=== PATIENT | male | born 1965 | race American Indian/Alaskan Native ===

== ENCOUNTER 2016-11-29 10:11 | Emergency (ER) | payer BC ==
[2016-11-29 11:17] VITALS: BP 135/99
[2016-11-29] MEDS ORDERED: ULTRAM PO ONE (14:47)
--- NOTE | 2016-11-29 14:47 | Emergency Department Report ---
HPI - General Chief Complaint: Pain General Time Seen by Provider: 11/29/16 14:34 - HPI HPI: 51-year-old male presents to the ED complaining of generalized joint pain times several days. 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 Patient states he is beginning to have at there are any joint pain in his hands and is unable to use her without some pain. She states hand is throbbing in nature. Patient denies loss of sensation. Patient denies fevers/chills/nausea/vomiting/abdominal pain/chest pain/ shortness of breath or any other problems. ED Past Medical Hx - Past Medical History Previous Medical History?: Yes Hx Hypertension: Yes Hx CVA: Yes Hx Diabetes: Yes (TYPE 2) Hx Arthritis: Yes Hx Asthma: Yes Additional medical history: neuropathy both legs. 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, recontruction surgery on abd, left hand surgery, nerve ablation - Social History Smoking Status: Light Tobacco Smoker Substance Use Type: Alcohol - Medications Home Medications: Home Medications Medication Instructions Recorded Confirmed Last Taken Type Allopurinol [Zyloprim] 100 mg PO QDAY 03/23/14 08/06/16 08/06/16 History Atorvastatin [Lipitor] 40 mg PO QHS 03/23/14 08/06/16 08/06/16 History Canagliflozin (Nf) [Invokana] 100 mg PO QDAY 03/23/14 08/06/16 08/06/16 History amLODIPine [Norvasc] 10 mg PO DAILY 03/23/14 08/06/16 08/06/16 History metFORMIN [Glucophage] 500 mg PO BID 03/23/14 08/06/16 08/06/16 History Cyclobenzaprine HCl 7.5 mg PO BID PRN #14 tab 08/06/16 Unknown Rx [Cyclobenzaprine 7.5 MG TAB] Diclofenac Potassium 50 mg PO BID #20 tablet 11/29/16 Unknown Rx traMADol [Ultram 50 MG tab] 50 mg PO Q6H #30 tablet 11/29/16 Unknown Rx ED Review of Systems ROS: Stated complaint: SHOULDER/WRIST/NECK/BACK PAIN Other details as noted in HPI Constitutional: denies: chills, fever Eyes: denies: eye pain, eye discharge, vision change ENT: denies: ear pain, throat pain Respiratory: denies: cough, shortness of breath, wheezing Cardiovascular: denies: chest pain, palpitations Endocrine: no symptoms reported Gastrointestinal: denies: abdominal pain, nausea, diarrhea Genitourinary: denies: urgency, dysuria, frequency, hematuria, discharge Musculoskeletal: arthralgia. denies: back pain, joint swelling, myalgia Skin: denies: rash, lesions Neurological: denies: headache, weakness, numbness, paresthesias, confusion, abnormal gait, vertigo Psychiatric: denies: anxiety, depression, auditory hallucinations, visual hallucinations, homicidal thoughts, suicidal thoughts Hematological/Lymphatic: denies: easy bleeding, easy bruising Physical Exam - Physical Exam Vital Signs: Vital Signs 11/29/16 11:12 Temperature 98.3 F Pulse Rate 77 Respiratory 16 Rate Blood Pressure 135/99 O2 Sat by Pulse 100 Oximetry Physical Exam: GENERAL: Alert and oriented x3, no apparent distress, Normal Gait, atraumatic. HEAD: Head is normocephalic and a-traumatic. EYES: Extra ocular muscles are intact. Pupils are equal, round, and reactive to light and accommodation. EARS: symetrical, gross auditory nml bilaterally. NOSE: Nose symetrical, Nontender,Nares appeared normal. MOUTH:Mouth is well hydrated and without lesions. Patent airways. NECK: Supple. Non edematous, No carotid bruits. No lymphadenopathy or thyromegaly. LUNGS: Symetrical with respiration, No wheezing, no rales or crackles, CTAB. HEART: S1, S2 present, regular rate and rhythm without murmur, no rubs, no gallops. ABDOMEN: No organomegaly was noted,Positive bowel sounds, soft, and non- distended. . Nontender to palpation on all Quadrants, NO CVA tenderness. EXTREMITIES/MUSCULOSKELETAL: No cyanosis, clubbing, rash, lesions or edema. Full ROM bilaterally. UE/LE Pulses 2+ bilaterally. No loss of sensation in her hands patient but to extend hands and flex and with little difficulty NEUROLOGIC: No focal Deficit, Cranial nerves II through XII are grossly intact. No loss of sensation, PSYCHIATRIC: Mood is congruent with affect, denies suicidal or homicidal ideations. SKIN: Warm and dry, No lesions, No ulceration or induration present. ED Course Vital Signs 11/29/16 11:12 Temperature 98.3 F Pulse Rate 77 Respiratory 16 Rate Blood Pressure 135/99 O2 Sat by Pulse 100 Oximetry ED Medical Decision Making - Medical Decision Making 51-year-old male presents with a pleuritic chart pain. ED course: Patient received 100 mg of tramadol in ED. Discussed the patient will follow up with primary care physician. ED course: Discussed home medication or anti-inflammatory and pain medication. Patient states he will follow up with his primary care physician. Patient's vital signs stable. Patient is in no acute or distress. Critical care attestation.: If time is entered above; I have spent that time in minutes in the direct care of this critically ill patient, excluding procedure time. ED Disposition Clinical Impression: Arthritis pain of hand Arthralgia Qualifiers: Joint pain location: hand Laterality: bilateral Qualified Code(s): M25.541 - Pain in joints of right hand Disposition: DISCHARGED TO HOME OR SELFCARE Is pt being admited?: No Does the pt Need Aspirin: No Condition: Stable Instructions: Osteoarthritis (ED), Arthralgia (ED) Prescriptions: Diclofenac Potassium 50 mg PO BID #20 tablet traMADol [Ultram 50 MG tab] 50 mg PO Q6H #30 tablet Referrals: PRIMARY CARE, [Primary Care Provider] - 3-5 Days VIRIDIANA HUMPHREYS MD [Referring] - 3-5 Days RIZWAN GAMBOA MD [Referring] - 3-5 Days [facility] [Outside] - 3-5 Days [facility] [Outside] - 3-5 Days [facility] [Outside] - 3-5 Days Forms: Work/School Release Form(ED) Time of Disposition: 15:20
== END 2016-11-29 15:39 | disposition home or self-care (01) ==
LOC: ED 10:11
DX: M19.90 Unspecified osteoarthritis, unspecified site (principal); M25.511 Pain in right shoulder; I10 Essential (primary) hypertension; E11.9 Type 2 diabetes mellitus without complications; J45.909 Unspecified asthma, uncomplicated; F17.200 Nicotine dependence, unspecified, uncomplicated
CPT/HCPCS: 99282

== ENCOUNTER 2017-04-18 09:34 | Emergency (ER) | payer BC ==
[2017-04-18 10:58] LABS: Eosinophils % (Auto) 2.1 % (0.0-4.3); Hematocrit 48.8 % (35.5-45.6); Hemoglobin 15.4 gm/dl (11.8-15.2); Mean Corpuscular HGB Conc 32 % (32-34); Mean Corpuscular Volume 76 fl (84-94); Platelet Count 201 K/mm3 (140-440); Red Blood Count 6.41 M/mm3 (3.65-5.03); Red Cell Distribution Width 14.7 % (13.2-15.2); White Blood Count 11.2 K/mm3 (4.5-11.0)
[2017-04-18 10:59] LABS: Mean Corpuscular Hemoglobin 24 pg (28-32)
--- NOTE | 2017-04-18 11:01 | Emergency Department Report ---
Entered by AILYN PAULINO, acting as scribe for ZABRINA OLIVO PA. Chief Complaint: Abdominal Pain Stated Complaint: ABdominal pain Time Seen by Provider: 04/18/17 10:08 - HPI History of Present Illness: 52 y/o male, with Hx of HTN, DM, chronic bronchitis, chronic back pain, carpal tunnel and arthritis, he is nontoxic, well nourished in appearance, no acute signs of distress and presents with constant, 10/10, sharp pelvic pain that started 2 days ago. Sx include chronic back pain and mild dysuria, but pt denies n/v, fever, chills or urinary frequency. Pt notes having extensive abd surgery 21 years ago. - ROS Review of Systems: All systems are negative unless stated in HPI above Sx include pelvic pain, chronic back pain and mild dysuria, but pt denies n/v, fever, chills or urinary frequency. - Exam Vital Signs: Vital Signs 04/18/17 09:39 Temperature 97.8 F Pulse Rate 84 Respiratory 16 Rate Blood Pressure 143/99 O2 Sat by Pulse 100 Oximetry Physical Exam: Head: Normocephalic, atraumatic Cardiovascular: S1-S2, regular rate, regular rhythm. No murmurs. Abdomen: pelvic TTP, positive guarding with no rebound. Bowel sounds normal. No CVA tenderness MSE screening note: Focused history and physical exam performed. Due to findings the following was ordered: see [facility] ED Medical Decision Making - Medical Decision Making Appropriate screening provided to pt by provider in MSE, appropriate protocol implemented. To be seen by provider in main ED. ED Disposition for [facility] Condition: Stable This documentation as recorded by the scribe,AILYN PAULINO,accurately reflects the service I personally performed and the decisions made by ga,ZABRINA OLIVO PA.
[2017-04-18 11:08] LABS: Bilirubin,Urine NEG (Negative); Blood,Urine NEG (Negative); Ketones,Urine TR mg/dL (Negative); Leukocyte Esterase,Urine NEG (Negative); Nitrite,Urine NEG (Negative); Protein,Urine <15 mg/dL mg/dL (Negative); Urobilinogen,Urine < 2.0 mg/dL (<2.0); WBC,Urine < 1.0 /HPF (0.0-6.0)
[2017-04-18 11:21] LABS: Alanine Aminotransferase 28 units/L (7-56); Albumin 4.5 g/dL (3.9-5); Albumin/Globulin Ratio 1.2 %; Alkaline Phosphatase 96 units/L (35-129); Anion Gap 19 mmol/L; Blood Urea Nitrogen 11 mg/dL (9-20); Calcium 9.1 mg/dL (8.4-10.2); Carbon Dioxide 24 mmol/L (22-30); Chloride 100.5 mmol/L (98-107); Glucose 123 mg/dL (75-100); Lipase 46 units/L (13-60); Potassium 4.2 mmol/L (3.6-5.0); Sodium 139 mmol/L (137-145); Total Protein 8.4 g/dL (6.3-8.2)
[2017-04-18] MEDS ORDERED: MORPHINE IV ONE (20:38)
[2017-04-18] MEDS ORDERED: ZOFRAN IV ONE (20:38)
--- NOTE | 2017-04-18 20:42 | Emergency Department Report ---
ED Abdominal Pain HPI - General Chief Complaint: Abdominal Pain Stated Complaint: GROIN PAIN/BACK PAIN Time Seen by Provider: 04/18/17 10:12 Source: patient Mode of arrival: Ambulatory Limitations: No Limitations - History of Present Illness Initial Comments: Patient is a 52 years old -German male coming with abdominal pain since Tuesday. He describes his pain as a chronic and suprapubic and radiated to his back. He might anything for nausea or vomiting. Complaining of burning sensation in the urine MD Complaint: abdominal pain -: Gradual, days(s) Location: suprapubic Radiation: back Migration to: no migration Severity scale (0 -10): 6 Quality: cramping Associated Symptoms: constipation. denies: nausea, vomiting, diarrhea - Related Data Home Medications Medication Instructions Recorded Confirmed Last Taken Allopurinol [Zyloprim] 100 mg PO QDAY 03/23/14 04/18/17 04/18/17 08:00 Atorvastatin [Lipitor] 40 mg PO QHS 03/23/14 04/18/17 04/17/17 21:00 Canagliflozin (Nf) [Invokana] 100 mg PO QDAY 03/23/14 04/18/17 04/17/17 08:00 amLODIPine [Norvasc] 10 mg PO DAILY 03/23/14 04/18/17 04/18/17 08:00 metFORMIN [Glucophage] 500 mg PO BID 03/23/14 04/18/17 04/18/17 08:00 Previous Rx's Medication Instructions Recorded Last Taken Type Cyclobenzaprine HCl 7.5 mg PO BID PRN #14 tab 08/06/16 04/17/17 21:00 Rx [Cyclobenzaprine 7.5 MG TAB] Diclofenac Potassium 50 mg PO BID #20 tablet 11/29/16 04/18/17 08:00 Rx traMADol [Ultram 50 MG tab] 50 mg PO Q6H #30 tablet 11/29/16 04/17/17 21:00 Rx Ondansetron [Zofran Odt] 4 mg PO Q4-6H PRN #14 tab.rapdis 04/19/17 Unknown Rx traMADol [Ultram] 50 mg PO Q6HR PRN #14 tablet 04/19/17 Unknown Rx Allergies Allergy/AdvReac Type Severity Reaction Status Date / Time [place] Allergy Hives Verified 04/18/17 20:31 tree nut Allergy Hives Verified 04/18/17 20:31 PECANS Allergy Hives Uncoded 04/18/17 20:31 WALNUTS Allergy Hives Uncoded 04/18/17 20:31 ED Review of Systems ROS: Stated complaint: GROIN PAIN/BACK PAIN Other details as noted in HPI Comment: All other systems reviewed and negative Constitutional: denies: chills, fever Respiratory: denies: cough, shortness of breath, SOB with exertion Cardiovascular: denies: chest pain, palpitations Gastrointestinal: abdominal pain, constipation. denies: nausea, vomiting, diarrhea, hematemesis, melena, hematochezia Genitourinary: urgency, dysuria, frequency. denies: hematuria, discharge, testicular pain, testicular mass Neurological: denies: headache ED Past Medical Hx - Past Medical History Previous Medical History?: Yes Hx Hypertension: Yes Hx CVA: Yes Hx Diabetes: Yes (TYPE 2) Hx Arthritis: Yes Hx Asthma: Yes Additional medical history: neuropathy both legs. 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, recontruction surgery on abd, left hand surgery, nerve ablation - Social History Smoking Status: Current Every Day Smoker Substance Use Type: Alcohol - Medications Home Medications: Home Medications Medication Instructions Recorded Confirmed Last Taken Type Allopurinol [Zyloprim] 100 mg PO QDAY 03/23/14 04/18/17 04/18/17 08:00 History Atorvastatin [Lipitor] 40 mg PO QHS 03/23/14 04/18/17 04/17/17 21:00 History Canagliflozin (Nf) [Invokana] 100 mg PO QDAY 03/23/14 04/18/17 04/17/17 08:00 History amLODIPine [Norvasc] 10 mg PO DAILY 03/23/14 04/18/17 04/18/17 08:00 History metFORMIN [Glucophage] 500 mg PO BID 03/23/14 04/18/17 04/18/17 08:00 History Cyclobenzaprine HCl 7.5 mg PO BID PRN #14 tab 08/06/16 04/18/17 04/17/17 21:00 Rx [Cyclobenzaprine 7.5 MG TAB] Diclofenac Potassium 50 mg PO BID #20 tablet 11/29/16 04/18/17 04/18/17 08:00 Rx traMADol [Ultram 50 MG tab] 50 mg PO Q6H #30 tablet 11/29/16 04/18/17 04/17/17 21:00 Rx Ondansetron [Zofran Odt] 4 mg PO Q4-6H PRN #14 tab.rapdis 04/19/17 Unknown Rx traMADol [Ultram] 50 mg PO Q6HR PRN #14 tablet 04/19/17 Unknown Rx ED Physical Exam - General Limitations: No Limitations General appearance: alert, in no apparent distress - Head Head exam: Present: atraumatic - Eye Eye exam: Present: normal appearance - Neck Neck exam: Present: normal inspection, full ROM. Absent: tenderness, meningismus - Respiratory Respiratory exam: Present: normal lung sounds bilaterally. Absent: respiratory distress, rhonchi, stridor - Cardiovascular Cardiovascular Exam: Present: regular rate, normal rhythm, normal heart sounds - GI/Abdominal GI/Abdominal exam: Present: soft, tenderness. Absent: distended, guarding, rebound, rigid, mass, pulsatile mass, hernia - Neurological Exam Neurological exam: Present: alert, oriented X3, CN II-XII intact - Skin Skin exam: Present: warm, intact, normal color ED Course Vital Signs 04/18/17 04/18/17 04/18/17 09:39 20:21 22:00 Temperature 97.8 F Pulse Rate 84 64 65 Respiratory 16 20 20 Rate Blood Pressure 143/99 Blood Pressure 129/93 117/77 [Left] O2 Sat by Pulse 100 98 99 Oximetry 04/19/17 01:27 Temperature Pulse Rate 60 Respiratory 16 Rate Blood Pressure Blood Pressure 117/80 [Left] O2 Sat by Pulse 99 Oximetry ED Medical Decision Making - Lab Data Result diagrams: 04/18/17 10:47 04/18/17 10:47 Critical care attestation.: If time is entered above; I have spent that time in minutes in the direct care of this critically ill patient, excluding procedure time. ED Disposition Clinical Impression: Abdominal pain, Cholelithiasis Disposition: - TO HOME OR SELFCARE Is pt being admited?: No Does the pt Need Aspirin: No Condition: Undetermined Instructions: Biliary Colic (ED) Referrals: PRIMARY CARE, [Primary Care Provider] - 3-5 Days
[2017-04-18] MEDS ORDERED: NACL ONE (22:44)
[2017-04-19 01:28] VITALS: BP 117/80
--- NOTE | 2017-04-19 01:34 | Cat Scan Report ---
FINAL REPORT EXAM: CT ABDOMEN PELVIS W CON HISTORY: ABDOMINAL PAIN bladder pain TECHNIQUE: Dynamic helical CT scan through the abdomen and pelvis after ingestion of oral contrast and during and again after intravenous injection of iodinated contrast. Images are reconstructed in the sagittal and coronal planes. 300 cc of Omnipaque were used for the IV contrast agent PRIORS: None. FINDINGS: The lung bases are clear. There is diffuse low-attenuation of the liver consistent with fatty infiltration. Otherwise, the liver appears normal. The pancreas, spleen and adrenal glands appear normal. There is a stone in an otherwise normal-appearing gallbladder. The right kidney appears normal. There are 2 hyperdense lesions in the lower pole of the left kidney. The larger measures 1.3 cm and the smaller measures 8 mm. The smaller lesion enhances with contrast. Both have negative Hounsfield measurements consistent with fat. The pelvic organs appear grossly normal. The stomach appears grossly within normal limits. There are no abnormally dilated loops of bowel or acute inflammatory changes. A normal-appearing appendix is identified. The abdominal aorta has a normal diameter. There is degenerative facet disease of the lower lumbar spine. IMPRESSION: 1. Two left renal lesions with internal fat most consistent with angiomyolipomas. Further evaluation with ultrasound is recommended. 2. Cholelithiasis without CT evidence of acute cholecystitis 3. Diffuse fatty infiltration of the liver
== END 2017-04-19 02:15 | disposition home or self-care (01) ==
LOC: ED 09:34
DX: K80.20 Calculus of gallbladder without cholecystitis without obstruction (principal); I10 Essential (primary) hypertension; M19.90 Unspecified osteoarthritis, unspecified site; J45.909 Unspecified asthma, uncomplicated; E11.40 Type 2 diabetes mellitus with diabetic neuropathy, unspecified; F17.210 Nicotine dependence, cigarettes, uncomplicated; Z86.73 Personal history of transient ischemic attack (TIA), and cerebral infarction without residual deficits; Z91.018 Allergy to other foods
CPT/HCPCS: 36415; 74177; 80053; 81001; 83690; 85025; 96374; 96375; 99284; J2270; J2405; Q9967

== ENCOUNTER 2017-09-10 09:44 | Emergency (ER) | payer BC ==
[2017-09-10 09:52] VITALS: BP 157/98
[2017-09-10 10:31] LABS: Basophils % (Auto) 1.3 % (0.0-1.8); Eosinophils % (Auto) 2.5 % (0.0-4.3); Hematocrit 46.1 % (35.5-45.6); Hemoglobin 14.9 gm/dl (11.8-15.2); Mean Corpuscular HGB Conc 32 % (32-34); Mean Corpuscular Volume 77 fl (84-94); Platelet Count 185 K/mm3 (140-440); Red Cell Distribution Width 14.4 % (13.2-15.2); White Blood Count 8.7 K/mm3 (4.5-11.0)
[2017-09-10 10:46] LABS: Mean Corpuscular Hemoglobin 25 pg (28-32)
[2017-09-10 10:57] LABS: Alanine Aminotransferase 46 units/L (7-56); Albumin 4.3 g/dL (3.9-5); Albumin/Globulin Ratio 1.2 %; Alkaline Phosphatase 115 units/L (35-129); Anion Gap 19 mmol/L; BUN/Creatinine Ratio 15; Blood Urea Nitrogen 15 mg/dL (9-20); Calcium 9.1 mg/dL (8.4-10.2); Carbon Dioxide 24 mmol/L (22-30); Chloride 100.3 mmol/L (98-107); Glucose 236 mg/dL (75-100); Potassium 4.1 mmol/L (3.6-5.0); Sodium 139 mmol/L (137-145); Uric Acid 4.3 mg/dL (3.5-7.6)
--- NOTE | 2017-09-10 11:38 | Emergency Department Report ---
ED Lower Extremity HPI - General Chief Complaint: Extremity Injury, Lower Stated Complaint: LEFT FOOT INJURY Time Seen by Provider: 09/10/17 10:09 Source: patient Mode of arrival: Ambulatory Limitations: Physical Limitation - History of Present Illness MD Complaint: foot injury -: Gradual Injury: Foot: Left Type of Injury: unknown, other (states may have hurt it just walking on it) Place: home Severity: moderate Improves With: nothing, other (states his ultram dont work; nor his flexeril) Worsens With: nothing Associated Symptoms: denies: snap/pop sensation, swelling, numbness, tingling, unable to bear weight, able to partially bear weight, ambulatory - Related Data Home Medications Medication Instructions Recorded Confirmed Last Taken Allopurinol [Zyloprim] 100 mg PO QDAY 03/23/14 04/18/17 04/18/17 08:00 Atorvastatin [Lipitor] 40 mg PO QHS 03/23/14 04/18/17 04/17/17 21:00 amLODIPine [Norvasc] 10 mg PO DAILY 03/23/14 04/18/17 04/18/17 08:00 metFORMIN [Glucophage] 500 mg PO BID 03/23/14 04/18/17 04/18/17 08:00 Previous Rx's Medication Instructions Recorded Last Taken Type Naproxen [Naprosyn] 500 mg PO BID PRN #20 tablet 09/10/17 Unknown Rx traMADol [Ultram] 50 mg PO Q6HR PRN #12 tablet 09/10/17 Unknown Rx Allergies Allergy/AdvReac Type Severity Reaction Status Date / Time [place] Allergy Hives Verified 04/18/17 20:31 tree nut Allergy Hives Verified 04/18/17 20:31 PECANS Allergy Hives Uncoded 04/18/17 20:31 WALNUTS Allergy Hives Uncoded 04/18/17 20:31 ED Review of Systems ROS: Stated complaint: LEFT FOOT INJURY Other details as noted in HPI Comment: All other systems reviewed and negative Musculoskeletal: other (left foot pain- at heel) ED Past Medical Hx - Past Medical History Previous Medical History?: Yes Hx Hypertension: Yes Hx CVA: Yes Hx Diabetes: Yes (TYPE 2) Hx Arthritis: Yes Hx Asthma: Yes Additional medical history: neuropathy both legs. 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, recontruction surgery on abd, left hand surgery, nerve ablation - Social History Smoking Status: Current Every Day Smoker Substance Use Type: Alcohol, Marijuana, Prescribed - Medications Home Medications: Home Medications Medication Instructions Recorded Confirmed Last Taken Type Allopurinol [Zyloprim] 100 mg PO QDAY 03/23/14 04/18/17 04/18/17 08:00 History Atorvastatin [Lipitor] 40 mg PO QHS 03/23/14 04/18/17 04/17/17 21:00 History amLODIPine [Norvasc] 10 mg PO DAILY 03/23/14 04/18/17 04/18/17 08:00 History metFORMIN [Glucophage] 500 mg PO BID 03/23/14 04/18/17 04/18/17 08:00 History Naproxen [Naprosyn] 500 mg PO BID PRN #20 tablet 09/10/17 Unknown Rx traMADol [Ultram] 50 mg PO Q6HR PRN #12 tablet 09/10/17 Unknown Rx ED Physical Exam - General Limitations: Physical Limitation General appearance: alert, in no apparent distress - Head Head exam: Present: atraumatic - Eye Eye exam: Present: PERRL, EOMI - ENT ENT exam: Present: mucous membranes moist - Neck Neck exam: Present: normal inspection - Respiratory Respiratory exam: Present: normal lung sounds bilaterally - Cardiovascular Cardiovascular Exam: Present: regular rate, normal rhythm (90 on exam) - GI/Abdominal GI/Abdominal exam: Present: soft - Rectal Rectal exam: Present: deferred - Extremities Exam Extremities exam: Present: normal inspection, full ROM, tenderness - Expanded Lower Extremity Exam Left Lower Leg exam: Present: normal inspection Ankle exam: Present: normal inspection Foot/Toe exam: Present: normal inspection (states it just hurts; indicating near heel and bottom of foot; no trauma known). Absent: tenderness, swelling, ecchymosis, deformity, erythema, subungual hematoma ED Course Vital Signs 09/10/17 09:49 Temperature 98 F Pulse Rate 107 H Respiratory 22 Rate Blood Pressure 157/98 O2 Sat by Pulse 99 Oximetry - Reevaluation(s) Reevaluation #1: 09/10/17 12:06 to er w foot pain states no trauma n/v intact ambulatory states his ultram and flexeril is not working and all the pain is making his bp inc. labs noted no inc uric acid pt reports compliance w meds will not use prednisone given his inc bs xray noted discussed w pt medicated. ED Lower Extremity MDM - Lab Data Result diagrams: 09/10/17 10:15 09/10/17 10:15 - Radiology Data Radiology results: report reviewed, image reviewed - Medical Decision Making see note - Differential Diagnosis gout v fx Critical care attestation.: If time is entered above; I have spent that time in minutes in the direct care of this critically ill patient, excluding procedure time. ED Disposition Clinical Impression: Heel spur, Arthritis, Diabetes, Hyperglycemia, Hypertension Disposition: TO HOME OR SELFCARE Is pt being admited?: No Does the pt Need Aspirin: No Condition: Stable Instructions: Arthralgia (ED), Diabetes Mellitus Type 2 in Adults (ED), Hypertension (ED) Additional Instructions: warm compresses support shoe follow up pcp follow you diabetic diet monitor your blood pressure Prescriptions: Naproxen [Naprosyn] 500 mg PO BID PRN #20 tablet PRN Reason: Pain traMADol [Ultram] 50 mg PO Q6HR PRN #12 tablet PRN Reason: Pain Referrals: PRIMARY CARE, [Primary Care Provider] - 3-5 Days ROBERTO MONTILLA MD [Staff Physician] - 3-5 Days KIANA CAMARENA MD [Staff Physician] - 3-5 Days Time of Disposition: 11:54
--- NOTE | 2017-09-10 11:52 | XRay Report ---
Left foot 3 views: History: Left foot pain. Findings: Large plantar spur posterior calcaneum. Arthritic changes in the talotibial joint. Arthritic changes of the first tarsometatarsal joint. Mild arthritic changes of the interphalangeal joint second third fourth and fifth toes. No periosteal reaction, lytic lesion or soft tissue calcification. Impression: Findings as detailed above.
[2017-09-10] MEDS ORDERED: TORADOL IM ONE (11:56)
== END 2017-09-10 13:30 | disposition home or self-care (01) ==
LOC: ED 09:44
DX: S99.922A Unspecified injury of left foot, initial encounter (principal); M77.32 Calcaneal spur, left foot; E11.65 Type 2 diabetes mellitus with hyperglycemia; I10 Essential (primary) hypertension; M19.072 Primary osteoarthritis, left ankle and foot; I63.9 Cerebral infarction, unspecified; J45.909 Unspecified asthma, uncomplicated; F12.10 Cannabis abuse, uncomplicated; F17.200 Nicotine dependence, unspecified, uncomplicated; Z98.890 Other specified postprocedural states; Z91.018 Allergy to other foods; Z91.010 Allergy to peanuts; X58.XXXA Exposure to other specified factors, initial encounter; Y93.89 Activity, other specified; Y99.8 Other external cause status; Y92.098 Other place in other non-institutional residence as the place of occurrence of the external cause
CPT/HCPCS: 36415; 73630; 80053; 84550; 85025; 96372; 99284; J1885

== ENCOUNTER 2017-12-12 17:20 | Emergency (ER) | payer BC ==
[2017-12-12] MEDS ORDERED: CATAPRES PO ONE ×2 (17:48→17:59)
--- NOTE | 2017-12-12 18:02 | Emergency Department Report ---
Chief Complaint: High BP Stated Complaint: NECK PAIN, HTN - HPI History of Present Illness: The patient is a 52-year-old male who presents for evaluation of neck pain and headache. The patient has a history of poorly controlled hypertension, diabetes , who reports recurrence of chronic posterior lower neck pain for the past couple of days, achy in quality, moderate to severe, exacerbated with movement of the neck. He admits to a constant mild to moderate headache since this morning. The patient denies fever, head injury, neck stiffness, chest pain, dyspnea, hemoptysis, vision or hearing changes, smell or taste changes, paresthesias, facial drooping, slurred speech, seizure-like activity, urine or bowel incontinence or retention, or other focal neurological deficit. - Exam Vital Signs: Vital Signs 12/12/17 17:36 Temperature 99.1 F Pulse Rate 83 Respiratory 16 Rate Blood Pressure 181/124 O2 Sat by Pulse 98 Oximetry MSE screening note: Focused history and physical exam performed. Due to findings the following was ordered: ED Disposition for MSE Condition: Stable
--- NOTE | 2017-12-12 18:41 | Cat Scan Report ---
FINAL REPORT EXAM: CT HEAD WO CONTRAST HISTORY: headache, HTN TECHNIQUE: Standard unenhanced CT of the head at 5.0 millimeter axial increments. PRIORS: None. FINDINGS: The ventricular system is normal in size and configuration. There is no evidence for parenchymal volume loss. There is no evidence for mass lesion, mass effect, midline shift, acute intracranial hemorrhage, or acute ischemia/ infarction. No evidence for acute skull fracture is seen. No abnormality in the overlying scalp soft tissues is seen. Visualized paranasal sinuses are clear. IMPRESSION: Negative CT of the head. No acute intracranial process noted.
[2017-12-12] MEDS ORDERED: TYLENOL PO ONE (19:47)
[2017-12-12] MEDS ORDERED: TORADOL IM ONE (19:47)
--- NOTE | 2017-12-12 19:48 | Emergency Department Report ---
ED General Adult HPI - General Chief complaint: High BP Stated complaint: NECK PAIN, HTN Time Seen by Provider: 12/12/17 19:29 Source: patient, RN notes reviewed Mode of arrival: Ambulatory Limitations: No Limitations - History of Present Illness Initial comments: This is a 52-year-old male. The patient is previously unknown to this provider. He has a past medical history of hypertension, chronic back pain, chronic lower back pain. The patient presents to the ER with complaint of right-sided trapezius pain which radiates up into the occipital scalp. It has been present for 3-4 days. It is not sudden or thunderclap in nature. It did not reach maximal intensity within an hour. There is no neck stiffness is no fever, there is no weakness, numbness or unsteady gait. 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 The trapezius pain increases with palpation, range of motion, does not radiate anywhere except as noted, and decreases with rest. Patient reports taking Tylenol the other day, and then "going to sleep because I felt better." There is no trauma, there is no recent chiropractic manipulation. -: Gradual Location: head Radiation: neck Quality: aching Consistency: intermittent Improves with: other Worsens with: other Associated Symptoms: headaches. denies: confusion, chest pain, cough, diaphoresis, fever/chills, loss of appetite, malaise, nausea/vomiting, rash, seizure, shortness of breath, syncope, weakness - Related Data Home Medications Medication Instructions Recorded Confirmed Last Taken Allopurinol [Zyloprim] 100 mg PO QDAY 03/23/14 04/18/17 04/18/17 08:00 Atorvastatin [Lipitor] 40 mg PO QHS 03/23/14 04/18/17 04/17/17 21:00 amLODIPine [Norvasc] 10 mg PO DAILY 03/23/14 04/18/1704/18/17 08:00 metFORMIN [Glucophage] 500 mg PO BID 03/23/14 04/18/17 04/18/17 08:00 Previous Rx's Medication Instructions Recorded Last Taken Type Naproxen [Naprosyn] 500 mg PO BID PRN #20 tablet 09/10/17 Unknown Rx traMADol [Ultram] 50 mg PO Q6HR PRN #12 tablet 09/10/17 Unknown Rx Acetaminophen [Tylenol Arthritis] 650 mg PO Q6HR PRN #30 tablet.er 12/12/17 Unknown Rx Ibuprofen [Motrin] 600 mg PO Q8H PRN #30 tablet 12/12/17 Unknown Rx Lidocaine [Lidoderm] 1 each TP BID PRN #10 adh..patch 12/12/17 Unknown Rx Allergies Allergy/AdvReac Type Severity Reaction Status Date / Time [place] Allergy Hives Verified 04/18/17 20:31 tree nut Allergy Hives Verified 04/18/17 20:31 PECANS Allergy Hives Uncoded 04/18/17 20:31 WALNUTS Allergy Hives Uncoded 04/18/17 20:31 ED Review of Systems ROS: Stated complaint: NECK PAIN, HTN Other details as noted in HPI Comment: All other systems reviewed and negative ED Past Medical Hx - Past Medical History Previous Medical History?: Yes Hx Hypertension: Yes Hx CVA: Yes Hx Diabetes: Yes (TYPE 2) Hx Arthritis: Yes Hx Asthma: Yes Additional medical history: neuropathy both legs. 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, recontruction surgery on abd, left hand surgery, nerve ablation - Social History Smoking Status: Current Some Day Smoker Substance Use Type: Alcohol - Medications Home Medications: Home Medications Medication Instructions Recorded Confirmed Last Taken Type Allopurinol [Zyloprim] 100 mg PO QDAY 03/23/14 04/18/17 04/18/17 08:00 History Atorvastatin [Lipitor] 40 mg PO QHS 03/23/14 04/18/17 04/17/17 21:00 History amLODIPine [Norvasc] 10 mg PO DAILY 03/23/14 04/18/17 04/18/17 08:00 History metFORMIN [Glucophage] 500 mg PO BID 03/23/14 04/18/17 04/18/17 08:00 History Naproxen [Naprosyn] 500 mg PO BID PRN #20 tablet 09/10/17 Unknown Rx traMADol [Ultram] 50 mg PO Q6HR PRN #12 tablet 09/10/17 Unknown Rx Acetaminophen [Tylenol Arthritis] 650 mg PO Q6HR PRN #30 tablet.er 12/12/17 Unknown Rx Ibuprofen [Motrin] 600 mg PO Q8H PRN #30 tablet 12/12/17 Unknown Rx Lidocaine [Lidoderm] 1 each TP BID PRN #10 adh..patch 12/12/17 Unknown Rx ED Physical Exam - General Limitations: No Limitations General appearance: alert, in no apparent distress - Head Head exam: Present: atraumatic, normocephalic - Eye Eye exam: Present: normal appearance, PERRL, EOMI, other (visual acuity intact to finger counting, color perception, reading at a close distance). Absent: nystagmus - ENT ENT exam: Present: normal exam, normal orophraynx, mucous membranes moist, normal external ear exam - Neck Neck exam: Present: normal inspection, tenderness (there is reproducible paracervical and trapezius right-sided tenderness.), full ROM, other (throat exam within normal limits, no redness, pus, streaking.). Absent: meningismus, lymphadenopathy, thyromegaly - Respiratory Respiratory exam: Present: normal lung sounds bilaterally. Absent: respiratory distress - Cardiovascular Cardiovascular Exam: Present: regular rate, normal rhythm, normal heart sounds. Absent: systolic murmur, diastolic murmur, rubs, gallop - GI/Abdominal GI/Abdominal exam: Present: soft, normal bowel sounds. Absent: distended, tenderness, guarding, rebound, rigid, pulsatile mass - Rectal Rectal exam: Present: deferred - Extremities Exam Extremities exam: Present: normal inspection, full ROM, normal capillary refill. Absent: pedal edema, joint swelling, calf tenderness - Back Exam Back exam: Present: normal inspection, full ROM, muscle spasm. Absent: tenderness, CVA tenderness (R), paraspinal tenderness, vertebral tenderness - Neurological Exam Neurological exam: Present: alert, oriented X3, CN II-XII intact, normal gait, other (Extraocular movements intact. Tongue midline. No facial droop. Facial sensation intact to light touch in the V1, V2, V3 distribution bilaterally. 5 and 5 strength in 4 extremities.. Sensation is intact to light touch in 4 extremities.). Absent: motor sensory deficit - Psychiatric Psychiatric exam: Present: normal affect, normal mood - Skin Skin exam: Present: warm, dry, intact, normal color. Absent: rash ED Course Vital Signs 12/12/17 12/12/17 12/12/17 17:36 18:01 19:42 Temperature 99.1 F 98.1 F Pulse Rate 83 83 100 H Respiratory 16 16 Rate Blood Pressure 181/124 181/124 Blood Pressure 140/90 [Left] O2 Sat by Pulse 98 97 Oximetry 12/12/17 20:07 Temperature Pulse Rate Respiratory 16 Rate Blood Pressure Blood Pressure [Left] O2 Sat by Pulse Oximetry ED Medical Decision Making - Lab Data Vital Signs 12/12/17 12/12/17 12/12/17 17:36 18:01 19:42 Temperature 99.1 F 98.1 F Pulse Rate 83 83 100 H Respiratory 16 16 Rate Blood Pressure 181/124 181/124 Blood Pressure 140/90 [Left] O2 Sat by Pulse 98 97 Oximetry 12/12/17 20:07 Temperature Pulse Rate Respiratory 16 Rate Blood Pressure Blood Pressure [Left] O2 Sat by Pulse Oximetry - Radiology Data Radiology results: report reviewed, image reviewed Noncontrast CT scan of the brain is negative. X-ray of the cervical spine shows DJD. - Medical Decision Making Differential diagnosis, including but not limited to: Muscular neck pain, incidental hypertension Assessment and plan: 52-year-old male with reproducible paracervical and trapezius tenderness, which is worsened after heavy lifting over the weekend, history and physical is not consistent with ischemic or hemorrhagic stroke, epidural compression syndrome, or infectious process. Throat exam is within normal limits, as no carotid bruit, there is no recent chiropractic manipulation. Blood pressure is improved with clonidine, patient noted to be smiling and laughing with his , he will be discharged with pain medication, lidocaine patches, lifting as tolerated, instructed to follow up with outpatient primary care doctor. Return precautions are reviewed. Critical care attestation.: If time is entered above; I have spent that time in minutes in the direct care of this critically ill patient, excluding procedure time. ED Disposition Clinical Impression: Trapezius strain, Elevated blood pressure reading Disposition: TO HOME OR SELFCARE Is pt being admited?: No Does the pt Need Aspirin: No Condition: Stable Instructions: Muscle Strain (ED) Additional Instructions: Rest, and avoid heavy lifting. Avoid strenuous physical activity. Take pain medication as directed. If taking Motrin/ibuprofen, do not take Naprosyn for the next 12 hours, and avoid combination with other NSAIDs, including additional Motrin, ibuprofen, Aleve, Naprosyn, aspirin. Follow-up with the primary care doctor within the next 2-3 weeks. Please note that blood pressure was elevated, and this should be followed up as recommended. Long-term complications of hypertension and elevated blood pressure include stroke, heart attack, disability, paralysis, loss of quality of life. Return to the ER right away with new pain, worsened pain, migration of pain, weakness, unsteady gait, confusion, nausea or vomiting, inability to tolerate liquid feeds, new, worsening or different symptoms. Referrals: PRIMARY CARE, [Primary Care Provider] - 3-5 Days KAPIL COOK MD [Staff Physician] - 3-5 Days
[2017-12-12 19:50] VITALS: BP 140/90
--- NOTE | 2017-12-12 20:02 | XRay Report ---
FINAL REPORT PROCEDURE: XR SPINE CERVICAL 2-3V TECHNIQUE: Cervical spine radiographs, AP, lateral, and open-mouth odontoid views. CPT 83086 HISTORY: Chronic neck pain. COMPARISON: No prior studies are available for comparison. FINDINGS: Prevertebral soft tissues: Normal. Mild carotid artery calcification. Alignment: Normal. Straightening of normal cervical lordosis. Vertebral body heights/Disk spaces: Moderate to severe C3-4 and C5-6 disc space narrowing. Mild C4-5 disc space narrowing. Multilevel osteophytes. Fracture(s): None . Facets: Normal . Bone mineralization: Osteopenia. IMPRESSION: Osteopenia and degenerative change of the cervical spine. Straightening of normal cervical lordosis, likely patient positioning or muscle spasm.
== END 2017-12-12 20:26 | disposition home or self-care (01) ==
LOC: ED 17:20
DX: S16.1XXA Strain of muscle, fascia and tendon at neck level, initial encounter (principal); I10 Essential (primary) hypertension; Z91.010 Allergy to peanuts; E11.40 Type 2 diabetes mellitus with diabetic neuropathy, unspecified; M10.9 Gout, unspecified; J45.909 Unspecified asthma, uncomplicated; F17.200 Nicotine dependence, unspecified, uncomplicated; X58.XXXA Exposure to other specified factors, initial encounter; Y93.89 Activity, other specified; Y92.89 Other specified places as the place of occurrence of the external cause; Y99.8 Other external cause status
CPT/HCPCS: 70450; 72040; 96372; 99284; J1885

== ENCOUNTER 2022-01-28 23:56 | Emergency (ER) | payer BC, OTHER ==
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
[2022-01-29] MEDS ORDERED: MORPHINE 4 MG/1 ML INJ IV ONE (03:31)
[2022-01-29] MEDS ORDERED: ONDANSETRON 4 MG/2 ML INJ IV ONE (03:31)
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
[2022-01-29 06:47] VITALS: BP 134/86
== END 2022-01-29 06:47 | disposition home or self-care (01) ==
LOC: ED 23:56
DX: S82.302A Unspecified fracture of lower end of left tibia, initial encounter for closed fracture (principal); I10 Essential (primary) hypertension; E11.9 Type 2 diabetes mellitus without complications; M19.90 Unspecified osteoarthritis, unspecified site; J45.909 Unspecified asthma, uncomplicated; Z86.73 Personal history of transient ischemic attack (TIA), and cerebral infarction without residual deficits; F17.200 Nicotine dependence, unspecified, uncomplicated; Z91.02 Food additives allergy status; Z91.018 Allergy to other foods; Z91.010 Allergy to peanuts; Z79.899 Other long term (current) drug therapy; Y93.89 Activity, other specified; Y92.89 Other specified places as the place of occurrence of the external cause; Y99.8 Other external cause status
CPT/HCPCS: 29515; 73610; 96374; 96375; 99283; J2270; J2405

== ENCOUNTER 2022-02-19 08:18 | Day surgery (SDC) | payer OTHER ==
[~2022-02-19 08:18] MED LIST: ceFAZolin/STERILE WATER 2 GM/20 ML SYRINGE IV NR
[2022-02-19] MEDS ORDERED: LACTATED RINGERS 1,000 ML ONE (08:53)
[2022-02-19] MEDS ORDERED: ONDANSETRON 4 MG/2 ML INJ IV PRN (09:14)
[2022-02-19] MEDS ORDERED: HYDROmorphone 0.5 MG/0.5 ML INJ IV PRN ×2 (09:14)
--- NOTE | 2022-02-19 09:15 | Anesthesia Day of Surgery ---
Anesthesia Day of Surgery - Day of Surgery Patient Examined: Yes Patient H&P Reviewed: Yes Patient is NPO: Yes
--- NOTE | 2022-02-19 09:17 | Anesthesia Consultation ---
Anesthesia Consult and Med Hx Date of service: 02/19/22 - Airway Anesthetic Teeth Evaluation: Chipped ROM Head & Neck: Adequate Mental/Hyoid Distance: Adequate Mallampati Class: Class I Intubation Access Assessment: Good - Pre-Operative Health Status ASA Pre-Surgery Classification: ASA3 Proposed Anesthetic Plan: General Nerve Block: Sciatic - Pulmonary Hx Smoking: Yes Hx Asthma: Yes (As a child) Hx Sleep Apnea: No - Cardiovascular System Hx Hypertension: Yes - Central Nervous System Hx Back Pain: Yes (Degenerative L5) Hx Psychiatric Problems: No - Gastrointestinal Hx Gastroesophageal Reflux Disease: No - Endocrine Hx Non-Insulin Dependent Diabetes: Yes - Hematic Hx Sickle Cell Disease: No - Other Systems Hx Alcohol Use: Yes (Occas) Hx Substance Use: Yes (Marijuana usually daily) Hx Cancer: No Hx Obesity: Yes (BMI 40)
[2022-02-19] MEDS ORDERED: BUPIVACAINE/PF (0.25%) 2.5 MG/ML 30 ML VIAL INFILTRATI ONE (09:22)
[2022-02-19] MEDS ORDERED: BUPIVACAINE/PF (0.5%) 5 MG/1 ML 30 ML VIAL INFILTRATI ONE (09:22)
[2022-02-19] MEDS ORDERED: LACTATED RINGERS 1,000 ML IV SCH (09:30)
[2022-02-19] MEDS ORDERED: fentaNYL 100 MCG/2 ML INJ IV ONE (10:00)
[2022-02-19] MEDS ORDERED: MIDAZOLAM 2 MG/2 ML INJ IV NR (10:00)
[2022-02-19] MEDS ORDERED: fentaNYL 100 MCG/2 ML INJ ONE (10:01)
[2022-02-19] MEDS ORDERED: ONDANSETRON 4 MG/2 ML INJ ONE (10:01)
[2022-02-19] MEDS ORDERED: LIDOCAINE MPF (2%) 20 MG/1 ML VIAL 5 ML ONE (10:01)
[2022-02-19] MEDS ORDERED: propofoL 200 MG/20 ML VIAL IV ONE (10:02)
[2022-02-19] MEDS ORDERED: SODIUM CHLORIDE 0.9% IRR 1,500 ML BOTTLE IR ONE (11:03)
--- NOTE | 2022-02-19 12:30 | XRay Report ---
XR ANKLE 2V LT INDICATION / CLINICAL INFORMATION: DISTAL FIBULA FRACTURE. COMPARISON: 01/29/22. FINDINGS: Lateral metallic plate and screws transfix the oblique distal fibular fracture. No complication of siddiqi rgery is seen. Fluoroscopy time: 0.1 minute. Fluoroscopic images: 2. Signer Name: Mario Huynh MD Signed: 02/19/2022 12:26 PM Workstation Name: [id number]
--- NOTE | 2022-02-19 13:00 | Procedure Note ---
Date of procedure: 02/19/22 Pre-op diagnosis: Displaced left lateral malleolus fracture Post-op diagnosis: same Procedure: Open reduction internal fixation [left] distal fibula Procedure The patient was brought to the OR placing our table as a supine position following induction of ratio and anesthesia patient's [left] lower extremity was prepped and draped in the usual sterile manner a timeout procedure was done to identify the patient and the correct operative site The leg was exsanguinated followed by inflation of the pneumatic tourniquet to 300 mm Hg. a lateral incision was made along the distal fibula distally and down sharply through skin and subcutaneous down to periosteum the fracture site was identified following manipulation of the fracture fragments a bone clamp was used to stabilize the fracture fragments. A short contoured locked plated applied to the distal fibular and secured with screws of various lengths under C-arm visualization.AP and lateral views showed good reduction of the fracture and placement of the hardware next the wound was copiously irrigated with saline solution and was closed in a standard routine fashion for subcutaneous dressings were applied as well as a well-padded posterior mold patient tolerated the procedure complications Anesthesia: GETA Surgeon: KIANA CAMARENA (Anselmo Thornton, 1st assist) Estimated blood loss: minimal Pathology: none Condition: stable Disposition: PACU
--- NOTE | 2022-02-19 13:48 | Post Anesthesia Evaluation ---
- Post Anesthesia Evaluation Patient Participated: Yes Airway Patent: Yes Stable Respiratory Function: Yes Nausea/Vomiting: No Temp > 96.8F: Yes Pain Manageable: Yes Adequeate Hydration: Yes Anesthesia Complications: No Block Receding Appropriately: Yes Patient on Ventilator: No
[2022-02-19 17:25] VITALS: BP 132/87
== END 2022-02-19 13:30 | disposition home or self-care (01) ==
LOC: OR 08:18
PROVIDERS: ATTEND Orthopaedic Surgery
DX: S82.62XA Displaced fracture of lateral malleolus of left fibula, initial encounter for closed fracture (principal); E11.9 Type 2 diabetes mellitus without complications; E78.00 Pure hypercholesterolemia, unspecified; I10 Essential (primary) hypertension; J45.909 Unspecified asthma, uncomplicated; K21.9 Gastro-esophageal reflux disease without esophagitis; E66.9 Obesity, unspecified; M19.90 Unspecified osteoarthritis, unspecified site; F17.210 Nicotine dependence, cigarettes, uncomplicated; Z88.8 Allergy status to other drugs, medicaments and biological substances; Z91.018 Allergy to other foods; Z79.899 Other long term (current) drug therapy; Z79.84 Long term (current) use of oral hypoglycemic drugs; Z68.41 Body mass index [BMI] 40.0-44.9, adult; Z72.89 Other problems related to lifestyle; Z98.890 Other specified postprocedural states; X58.XXXA Exposure to other specified factors, initial encounter; Y93.89 Activity, other specified; Y92.89 Other specified places as the place of occurrence of the external cause; Y99.8 Other external cause status
CPT/HCPCS: 27792; 64445; 64450; 73600; 82962; C1713; J0690; J2250; J2405; J2704; J3010; J3490; J7120; L8699

== ENCOUNTER 2022-04-05 11:28 | Outpatient (CLI) | payer OTHER ==
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
== END 2022-04-05 11:29 | disposition home or self-care (01) ==
LOC: XRAY 11:28
PROVIDERS: ATTEND Orthopaedic Surgery
DX: M77.32 Calcaneal spur, left foot (principal); M79.89 Other specified soft tissue disorders